=== PATIENT | female | born 1945 | race Caucasian/White ===

== ENCOUNTER → 2019-12-07 13:25 | Outpatient (CLI) | payer MEDICARE, SELFPAY ==
--- NOTE | ~2019-12-07 | MM_ITS ---
EXAMINATION: MM screening [facility] BI w grayson HISTORY: Screening mammogram TECHNIQUE: Craniocaudal and mediolateral oblique 3-D tomosynthesis images were obtained and synthetic 2-D images were generated. CAD analysis was submitted and interpreted. COMPARISON: 11/21/2018, 11/08/2017, 11/06/2016 bilateral digital screening mammogram examinations BREAST PARENCHYMAL COMPOSITION: FINDINGS: There is no evidence of suspicious mass, calcification, or architectural distortion to sugg est malignancy in either breast. There has been no suspicious interval change. IMPRESSION: 1. No mammographic evidence of malignancy. 2. Recommend routine screening mammography in one year. BI-RADS Category 1: Negative Reviewed, dictated and finalized at location A.
== END ==
PROVIDERS: PCP Family Medicine; Visit Provider Nurse Practitioner Obstetrics & Gynecology
DX: Z12.31 Encounter for screening mammogram for malignant neoplasm of breast (principal)
CPT/HCPCS: 77063; 77067

== ENCOUNTER 2020-02-19 07:30 | Outpatient (CLI) | payer MEDICARE, SELFPAY ==
[2020-02-19 08:43] LABS: Alanine Aminotransferase 48 U/L (4-35); Aspartate Amino Transferase 50 U/L (14-36)
== END 2020-02-19 07:31 | disposition home or self-care (01) ==
PROVIDERS: PCP Family Medicine; Visit Provider Physician Assistant
DX: E78.2 Mixed hyperlipidemia (principal)
CPT/HCPCS: 36415; 84450; 84460

== ENCOUNTER 2020-05-26 08:29 | Outpatient (CLI) | payer MEDICARE, SELFPAY ==
[2020-05-26 09:09] LABS: Alanine Aminotransferase 42 U/L (4-35); Aspartate Amino Transferase 44 U/L (14-36)
== END 2020-05-26 08:30 | disposition home or self-care (01) ==
PROVIDERS: PCP Family Medicine; Visit Provider Physician Assistant
DX: R74.8 Abnormal levels of other serum enzymes (principal)
CPT/HCPCS: 36415; 84450; 84460

== ENCOUNTER 2020-11-11 12:23 | Emergency (ER) | payer MEDICARE, SELFPAY ==
--- NOTE | ~2020-11-11 | CT_ITS ---
EXAMINATION: CT brain wo con DATE: 11/11/2020 14:04 INDICATION: Headache with pain at the base of the skull. TECHNIQUE: Computed tomography (CT) of the head was performed without intravenous contrast. Sagittal and coronal reconstructions were performed. The mA was adjusted according to patient size. Iterative reconstruction technique was employed. The dose-length product was 605.33 mGy-cm. COMPARISON: head CT dated 01/27/2018 FINDINGS: No acute intracranial hemorrhage, acute infarction or abnormal extra axial fluid collection. There is mild scattered white matter hypoattenuation consistent with chronic small vessel ischemic disease. V entricles are normal and symmetric. No mass/mass effect. Intracranial calcified cerebral atherosclero sis is noted. The orbits, paranasal sinuses and mastoid air cells are normal. IMPRESSION: 1. No acute intracranial process. 2. Mild scattered white matter hypoattenuation consistent with chronic small vessel ischemic disease. Reviewed, dictated and finalized at location A. 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 No acute intracranial process. 2. Mild scattered white matter hypoattenuation consistent with chronic small ve ssel ischemic disease.
[2020-11-11 12:32] VITALS: BP 157/80; PULSE 74; RESP 18; TEMP 36.5; O2SAT 99
--- NOTE | 2020-11-11 13:45 | ED.NECK ---
HPI - Neck Pain/Injury General Chief Complaint: Neck Pain/Injury Stated Complaint: posterior head pain Time Seen by Provider: 11/11/20 13:12 Source: patient Mode of arrival: ambulatory Limitations: no limitations History of Present Illness HPI Narrative: This is a 75 year old female that presents to the ER for posterior headache since yesterday. Reports pain is worse with palpation in the area. Does report it has subsided some since onset. Reports history of migraines. She took Tylenol around 10 this morning with some improvement. Denies fever, stiff neck, vision changes, vomiting, numbness or weakness. Related Data Allergies Allergy/AdvReac Type Severity Reaction Status Date / Time codeine Allergy Unknown Migraine Verified 11/11/20 12:36 NSAIDS (Non-Steroidal AdvReac Unknown ULCER WITH Verified 11/11/20 12:36 Anti-Inflamma NSAIDS Review of Systems Review of Systems: Narrative: CONSTITUTIONAL: Denies fever EYES: Denies visual changes GASTROINTESTINAL: Denies vomiting MUSCULOSKELETAL: Reports joint pain, and myalgia. NEUROLOGIC: Reports headache. Denies numbness, or weakness. All systems reviewed & are unremarkable except as noted in HPI and below PMFSH Past Medical History Medical History (Updated 11/11/20 @ 15:35 by Nehal Hoffman PA-C) Arthritis Ayoub esophagus Benign essential HTN Benign hypertension without CHF Chronic migraine GERD (gastroesophageal reflux disease) Hyperlipidemia Mixed hyperlipidemia OAB (overactive bladder) TAMMI (obstructive sleep apnea) Family History Family History Mother Family history of dementia, Onset Age: 88 Other Family history of alcoholism Family history of mental disorder Hypertension Social History Social History (Updated 10/06/20 @ 07:35 by Divina Booth) Social History: Smoking packs per day: 1 Smoking cigarettes per day: 20.0 Years smoked: 18 Smoking pack-years: 18.00 Smoking status: Former smoker Tobacco type: cigarettes Second hand tobacco smoke exposure: No Smoking end date: 09/16/95 Alcohol intake: former Substance use: never Substance use type: does not use Gender identity (if verbalized by the patient): Female Exam Narrative: Exam Narrative: GENERAL: Elderly, well-nourished, and in no acute distress. HEAD: Normocephalic, atraumatic. EYES: PERRLA and EOMI. ENT: Nares clear, no rhinorrhea or epistaxis. Mucous membranes moist. Oropharynx without tonsillar hypertrophy exudate or other lesions. Bilateral TMs pearly suresh non-bulging NECK: Supple. No adenopathy or masses. CHEST: Clear to auscultation. No respiratory distress. No wheezes rales or rhonchi HEART: Regular rate and rhythm. No murmur heard. Normal peripheral pulses. EXTREMITIES: Normal range of motion. No edema. Strength equal in bilateral upper extremities (5/5) SKIN: Warm, dry, no rash. NEURO: No focal deficits. Alert and oriented x3. Cranial nerves II through XII grossly intact. Normal [id number] PSYCH: Normal mood and affect Course Vital Signs Vital signs: Vital Signs Temperature 97.7 F 11/11/20 12:32 Pulse Rate 74 11/11/20 12:32 Respiratory Rate 18 11/11/20 12:32 Blood Pressure 157/80 H 11/11/20 12:32 Pulse Oximetry 99 11/11/20 12:32 Temperature 97.7 F 11/11/20 12:32 Pulse Rate 78 11/11/20 15:28 Respiratory Rate 20 11/11/20 15:28 Blood Pressure 148/72 H 11/11/20 15:28 Pulse Oximetry 99 11/11/20 15:28 MDM - Neck Pain/Injury MDM Narrative Medical decision making narrative: Patient presents the emergency department with no headache presents yesterday. She does report history of migraines for which she takes topiramate. She is afebrile and nontoxic-appearing. She is neurologically intact. CT scan of the brain is without acute findings. She was given migraine cocktail with relief. She is stable for further outpatient evaluation. She
[2020-11-11] MEDS: METOCLOPRAMIDE HCL INJ 10 MG/2 ML VIAL IV PUSH (14:05)
[2020-11-11] MEDS: SODIUM CHLORIDE 0.9% IV 1,000 ML 999 ML IV CONT (14:05)
[2020-11-11] MEDS: diphenhydrAMINE HCl INJ 50 MG/ML VIAL 25 MG IV PUSH (14:05)
[2020-11-11 15:28] VITALS: BP 148/72; PULSE 78; RESP 20; O2SAT 99
[2020-11-11 15:41] VITALS: BP 142/78; PULSE 78; RESP 18; O2SAT 99
== END 2020-11-11 15:43 | disposition home or self-care (01) ==
PROVIDERS: Emergency Provider Emergency Medicine; PCP Family Medicine
DX: R51.9 Headache, unspecified (principal); I10 Essential (primary) hypertension; K21.9 Gastro-esophageal reflux disease without esophagitis; E78.2 Mixed hyperlipidemia; G47.33 Obstructive sleep apnea (adult) (pediatric); K22.70 Barrett's esophagus without dysplasia; N32.81 Overactive bladder; M19.90 Unspecified osteoarthritis, unspecified site; Z87.891 Personal history of nicotine dependence
CPT/HCPCS: 70450; 96361; 96365; 96375; 99284; J0131; J1200; J2765; J7030

== ENCOUNTER → 2021-01-05 13:00 | Outpatient (CLI) | payer MEDICARE, SELFPAY ==
--- NOTE | ~2021-01-05 | MM_ITS ---
EXAMINATION: MM screening [facility] BI w grayson HISTORY: Screening mammogram TECHNIQUE: Craniocaudal and mediolateral oblique 3-D tomosynthesis images were obtained and synthetic 2-D images were generated. CAD analysis was submitted and interpreted. COMPARISON: 12/07/2019, 11/21/2018, 11/08/2017 BREAST PARENCHYMAL COMPOSITION: There are scattered areas of fibroglandular density. FINDINGS: There is no evidence of suspicious mass, calcification, or architectural distortion to sugg est malignancy in either breast. There has been no suspicious interval change. IMPRESSION: 1. No mammographic evidence of malignancy. 2. Recommend routine screening mammography in one year. BI-RADS Category 1: Negative Reviewed, dictated and finalized at location A.
== END ==
PROVIDERS: PCP Family Medicine; Visit Provider Family Medicine
DX: Z12.31 Encounter for screening mammogram for malignant neoplasm of breast (principal)
CPT/HCPCS: 77063; 77067

== ENCOUNTER 2021-01-24 07:43 | Emergency (ER) | payer MEDICARE, SELFPAY ==
[2021-01-24 07:48] VITALS: BP 133/76; PULSE 69; RESP 15; TEMP 36.2; O2SAT 96
[2021-01-24 08:07] VITALS: BP 127/64; PULSE 59; RESP 18; O2SAT 97
[2021-01-24 08:42] LABS: Basophils Absolute Auto 0.1 K/mm3 (0.0-0.1); Basophils Percent Auto 0.5 % (0.2-1.2); Eosinophils Absolute Auto 0.1 K/mm3 (0-0.3); Eosinophils Percent Auto 0.5 % (0-4.4); Hematocrit 39.6 % (37.0-47.0); Hemoglobin 13.5 g/dL (12.0-15.0); Immature Granulocyte Absolute 0.05 K/mm3 (0.00-0.031); Immature Granulocyte Percent A 0.5 % (0-0.5); Lymphocytes Absolute Auto 0.96 K/mm3 (0.9-3.2); Mean Corpuscular HGB Conc 34.1 g/dl (32-36); Mean Corpuscular Hemoglobin 29.6 pg (26-34); Mean Corpuscular Volume 86.8 fl (80-100); Mean Platelet Volume 9.8 fl (7.4-10.4); Monocytes Absolute Auto 0.7 K/mm3 (0.1-0.6); Monocytes Percent Auto 6.9 % (2.6-8.5); Neutrophils Absolute Auto 7.9 K/mm3 (1.3-6.7); Neutrophils Percent Auto 81.6 % (45.5-73.1); Platelet Count Result 285 k/mm3 (150-375); Red Blood Count 4.56 M/mm3 (4.2-5.4); Red Cell Distribution Width 13.2 % (11.5-14.5); White Blood Count 9.6 K/mm3 (4.5-10.0)
[2021-01-24 08:50] LABS: Alanine Aminotransferase 44 U/L (4-35); Albumin Level 4.7 g/dL (3.5-5.1); Alkaline Phosphatase 76 U/L (38-126); Anion Gap 8 mmol/L (8-16); Aspartate Amino Transferase 47 U/L (14-36); Bilirubin,Total 0.4 mg/dL (0.2-1.3); Blood Urea Nitrogen 8 mg/dL (7-17); Calcium 9.7 mg/dL (8.4-10.2); Carbon Dioxide 25 mmol/L (22-30); Chloride 101 mmol/L (98-107); Estimated CRCL calculation 57 ml/min; Estimated Glomerular Filt Rate > 60; Glucose 110 mg/dL (65-105); Lipase 107 U/L (23-300); Potassium 3.7 mmol/L (3.4-5.0); Sodium 134 mmol/L (137-145)
[2021-01-24] MEDS: SODIUM CHLORIDE 0.9% IV 1,000 ML 999 ML IV CONT (08:55)
[2021-01-24 09:15] VITALS: BP 125/61; PULSE 58; RESP 18; O2SAT 98
--- NOTE | 2021-01-24 09:16 | PC.NURSE ---
Pt receiving fluid bolus, denies N/V/abd pain, states last diarrhea episode last night
--- NOTE | 2021-01-24 09:17 | ED.GENADULT ---
HPI - General Adult General Chief complaint: Nausea/Vomiting/Diarrhea Stated complaint: diarrhea Time Seen by Provider: 01/24/21 07:48 History of Present Illness HPI narrative: Patient is a 75-year-old female who presents ER with diarrhea. Symptoms began 2 days ago. She reports that they were occurring quite frequently but cannot put a number on it. They were large-volume. They are not associated with any antibiotics or sick contacts. She reports she has been titrating up on new medication, it is a combo drug of memantine and donepezil. After titrating up to a third strength she began having the symptoms. She then discontinued the medication. She reports her diarrhea has decreased over the last day and she did not have any loose stools today. No fevers or chills or sweats. No loss of consciousness. Denies blood in her stool. Denies history of bowel obstruction or abdominal surgery. Related Data Allergies Allergy/AdvReac Type Severity Reaction Status Date / Time codeine Allergy Unknown Migraine Verified 01/03/21 07:29 NSAIDS (Non-Steroidal AdvReac Unknown ULCER WITH Verified 01/03/21 07:29 Anti-Inflamma NSAIDS Review of Systems Review of Systems: All systems reviewed & are unremarkable except as noted in HPI and below Constitutional: Constitutional: Denies chills, Denies fever(s) and Denies weakness Respiratory: Respiratory: Denies cough and Denies dyspnea Gastrointestinal: Gastrointestinal: Denies abdominal pain, Reports diarrhea, Denies nausea and Denies vomiting Genitourinary: Genitourinary: Denies nocturia and Denies dysuria [facility] Past Medical History Medical History (Updated 01/24/21 @ 09:21 by Nahid Wagoner MD) Arthritis Ayoub esophagus Benign essential HTN Benign hypertension without CHF Chronic migraine Dementia GERD (gastroesophageal reflux disease) Hyperlipidemia Mixed hyperlipidemia OAB (overactive bladder) TAMMI (obstructive sleep apnea) Family History Family History Mother Family history of dementia, Onset Age: 88 Other Family history of alcoholism Family history of mental disorder Hypertension Social History Social History (Updated 01/03/21 @ 07:35 by Divina Booth) Social History: Smoking packs per day: 1 Smoking cigarettes per day: 20.0 Years smoked: 18 Smoking pack-years: 18.00 Smoking status: Former smoker Tobacco type: cigarettes Second hand tobacco smoke exposure: No Smoking end date: 09/16/95 Alcohol intake: former Substance use: never Substance use type: does not use Gender identity (if verbalized by the patient): Female Exam Narrative: Exam Narrative: GENERAL: Well-appearing, well-nourished, and in no acute distress. HEAD: Normocephalic, atraumatic. ENT: Mucous membranes moist. CHEST: Clear to auscultation. No respiratory distress. HEART: Regular rate and rhythm. Normal peripheral pulses. ABDOMEN: Soft, nontender, nondistended, normal active bowel sounds. EXTREMITIES: Normal range of motion. No edema. NEURO: Alert and oriented x3. PSYCH: Normal mood and affect. Course Course Emergency Course: Unremarkable exam and lab work. Patient reports decreased loose stools. Discussed that symptoms may certainly be related to her medication. Recommend she contact her PCP in follow-up for further evaluation. Transaminitis within normal range for patient. Vital Signs Vital signs: Vital Signs Temperature 97.1 F L 01/24/21 07:48 Pulse Rate 69 01/24/21 07:48 Respiratory Rate 15 01/24/21 07:48 Blood Pressure 133/76 01/24/21 07:48 Pulse Oximetry 96 01/24/21 07:48 Temperature 97.1 F L 01/24/21 07:48 Pulse Rate 58 L 01/24/21 09:15 Respiratory Rate 18 01/24/21 09:15 Blood Pressure 125/61 01/24/21 09:15 Pulse Oximetry 98 01/24/21 09:15 Medical Decision Making Vital Signs Vital Signs: Vital Signs Temperature 97.1 F L 05
[2021-01-24 09:46] VITALS: BP 134/64; PULSE 60; RESP 16; O2SAT 99
== END 2021-01-24 09:47 | disposition home or self-care (01) ==
PROVIDERS: Emergency Provider Emergency Medicine; PCP Family Medicine
DX: K52.9 Noninfective gastroenteritis and colitis, unspecified (principal); M19.90 Unspecified osteoarthritis, unspecified site; I10 Essential (primary) hypertension; F03.90 Unspecified dementia, unspecified severity, without behavioral disturbance, psychotic disturbance, mood disturbance, and anxiety; K21.9 Gastro-esophageal reflux disease without esophagitis; E78.5 Hyperlipidemia, unspecified; G47.30 Sleep apnea, unspecified
CPT/HCPCS: 36415; 80053; 83690; 85025; 99283; J7030

== ENCOUNTER → 2021-03-13 10:17 | Outpatient (CLI) | payer MEDICARE, SELFPAY ==
--- NOTE | ~2021-03-13 | DEXA_ITS ---
Bone Density Report Name: Windy Escamilla Age: 75 Sex: Female Ethnicity: White Date of : 1945 Indication: postmenopausal; screening for osteoporosis; height loss; Referring Provider: SABRINA MCGREGOR Study: Bone densitometry was performed. Exam Date: March 13, 2021 Accession number: [id number] Bone Density: Region BMD T-score Z-score Classification AP Spine (L1-L4) 0.928 -1.1 1.3 Osteopenia Femoral Neck (Left) 0.823 -0.2 1.9 Normal Total Hip (Left) 0.983 0.3 2.1 Normal Femoral Neck (Right) 0.770 -0.7 1.4 Normal Total Hip (Right) 0.909 -0.3 1.5 Normal Total Hip Mean 0.946 0.0 1.8 Normal World Health Organization criteria for BMD impression classify patients as: Normal (T-score at or above -1.0), Osteopenia (T-score between -1.0 and -2.5), or Osteoporosis (T-score at or below -2.5). 10-year Fracture Risk(1): Major Osteoporotic Fracture 8.8% Hip Fracture 1.1% Reported Risk Factors: [place] (), Neck BMD=0.770, BMI=31.0 (1) FRAX(R) Version 3.08. Fracture probability calculated for an untreated patient. Fracture probability may be lower if the patient has received treatment. Previous Exams: Region Exam Age BMD T-score BMD Change BMD Change Date g/cm2 vs Baseline vs Previous AP Spine(L1-L4) 03/13/2021 75 0.928 -1.1 -0.007 -0.020 03/10/2019 73 0.948 -0.9 0.013 0.013 03/08/2017 71 0.935 -1.0 Total Hip(Left) 03/13/2021 75 0.983 0.3 0.058* 0.026 03/10/2019 73 0.956 0.1 0.031* 0.031* 03/08/2017 71 0.925 -0.1 Total Hip(Right) 03/13/2021 75 0.909 -0.3 0.054* 0.019 03/10/2019 73 0.890 -0.4 0.035* 0.035* 03/08/2017 71 0.855 -0.7 *Denotes significance at 95% confidence level, LSC for AP Spine = 0.022 g/cm2, LSC for Total Hip = 0.027 g/cm2 Clinical Information Provided by Patient: Has used the following medications: Vitamin D, Calcium, MTV Patient maximum height was 70.0 Menopause Age: 58 Drinks caffeinated beverages Onset of menses at age 12 Number of children 2 Impression: The patient has low bone mass, based on the Total Spine T-score. The patient has an estimated ten-year risk of hip fracture of 1.1% and an estimated ten-year risk of major fracture of 8.8%, based on the WHO FRAX algorithm. No significant bone loss was observed. Discussion: BONE DENSITY IS LOW AT
== END ==
PROVIDERS: Visit Provider Family Medicine
DX: Z78.0 Asymptomatic menopausal state (principal); M85.88 Other specified disorders of bone density and structure, other site
CPT/HCPCS: 77080

== ENCOUNTER 2021-07-10 09:45 | Outpatient (CLI) | payer MEDICARE, SELFPAY ==
--- NOTE | ~2021-07-10 | US_ITS ---
EXAMINATION: US carotid duplex BI EXAM DATE: 07/10/2021 10:17 INDICATION: Chest pain. R09.89 - Other specified symptoms and signs involving the... TECHNIQUE: Grayscale, color and pulsed Doppler images of the cervical carotid arteries were obtained . The degree of vessel stenosis is placed in one of the following categories: normal, <50% stenosis, 50-69% stenosis, >=70% stenosis but less than near-occlusion, near-occlusion, or occlusion. Note that percent stenosis relative to normal distal artery lumen diameter is indirectly measured from velocit y measurements as described by Barney, et al. Radiology 2003; 229:340-346. There is no prior study fo r comparison. FINDINGS: RIGHT SIDE: Right common carotid artery peak systolic velocity (PSV in cm/s): 74 Right bulb/internal carotid artery peak systolic velocity (PSV in cm/s): 131 Right internal carotid artery end diastolic velocity (EDV in cm/s): 41 Right ICA/CCA peak systolic ratio: 1.8 Right external carotid artery peak systolic velocity (PSV in cm/s): 133 Right vertebral artery antegrade flow: yes There is no focal plaque identified. LEFT SIDE: Left common carotid artery peak systolic velocity (PSV in cm/s): 78 Left bulb/internal carotid artery peak systolic velocity (PSV in cm/s): 98 Left internal carotid artery end diastolic velocity (EDV in cm/s): 33 Left ICA/CCA peak systolic ratio: 1.3 Left external carotid artery peak systolic velocity (PSV in cm/s): 86 Left vertebral artery antegrade flow: yes There is minimal carotid bulb plaque. Velocity and Doppler waveforms in the common and internal carotid arteries is normal. IMPRESSION: 1. Normal right internal carotid artery. 2. Less than 50 percent stenosis in the left internal carotid artery. Reviewed, dictated and finalized at location B.
== END 2021-07-10 09:46 | disposition home or self-care (01) ==
PROVIDERS: PCP Family Medicine; Visit Provider Family Medicine
DX: R09.89 Other specified symptoms and signs involving the circulatory and respiratory systems (principal); I65.22 Occlusion and stenosis of left carotid artery
CPT/HCPCS: 93880

== ENCOUNTER → 2022-02-26 12:10 | Outpatient (CLI) | payer MEDICARE, SELFPAY ==
--- NOTE | ~2022-02-26 | MM_ITS ---
EXAMINATION: MM screening jaqui BI w grayson HISTORY: Screening TECHNIQUE: Craniocaudal and mediolateral oblique 3-D tomosynthesis images were obtained and synthetic 2-D images were generated. CAD analysis was submitted and interpreted. COMPARISON: Comparison to multiple prior studies sequentially, with oldest reviewed study dated 06/13. BREAST PARENCHYMAL COMPOSITION: Breast composed of scattered areas of fibroglandular density FINDINGS: There is no evidence of suspicious mass, calcification, or architectural distortion to sugg est malignancy in either breast. There has been no suspicious interval change. IMPRESSION: 1. No mammographic evidence of malignancy. 2. Recommend routine screening mammography in one year. BI-RADS Category 1: Negative Reviewed, dictated and finalized at location A.
== END ==
PROVIDERS: PCP Family Medicine; Visit Provider Family Medicine
DX: Z12.31 Encounter for screening mammogram for malignant neoplasm of breast (principal)
CPT/HCPCS: 77063; 77067

== ENCOUNTER 2022-10-31 00:41 | Day surgery (SDC) | payer MEDICARE, SELFPAY ==
[2022-10-18 11:13] VITALS: BMI 31.6
--- NOTE | 2022-10-30 16:54 | PM.HPGS ---
History of Present Illness History of Present Illness Consent: Risks, benefits, and alternatives have been discussed and questions answered. Patient agrees to proceed with procedure. Chief complaint: GERD Narrative: Windy Escamilla is a 77 year old female Referred for investigation of chronic reflux symptoms. Review of Systems Review of Systems: All systems reviewed & are unremarkable except as noted in HPI and below PMFSH Past Medical History Medical History Abnormal screening mammogram Adverse reaction to drug Arthritis Ayoub esophagus Benign essential HTN Benign hypertension without CHF Breast cancer screening Bruit Chronic migraine Colitis Contusion of left lower leg, subsequent encounter Contusion of right great toe without damage to nail, subsequent encounter Dementia Diarrhea Eustachian tube disorder GERD (gastroesophageal reflux disease) Hyperlipidemia Memory change Mixed hyperlipidemia OAB (overactive bladder) TAMMI (obstructive sleep apnea) Palpitations Palpitations Postmenopausal Family History Family History Mother Family history of dementia, Onset Age: 88 Other Family history of alcoholism Family history of mental disorder Hypertension Social History Social History Social History: Smoking packs per day: 1 Smoking cigarettes per day: 20.0 Years smoked: 18 Smoking pack-years: 18.00 Smoking status: Former smoker Tobacco type: cigarettes Second hand tobacco smoke exposure: No Smoking end date: 09/16/95 Alcohol intake: former Substance use: never Substance use type: does not use Living arrangements: with family Occupation/Education: retired Gender identity (if verbalized by the patient): Female Sexual Orientation (if Verbalized by the Patient): Straight or Heterosexual Spiritual care concerns: No Meds Home Medications and Allergies Home Medications Medication Instructions Recorded Confirmed Type clobetasol 0.05 % scalp solution 1 applic topical DAILY #50 mL 05/30/20 10/18/22 Rx fluticasone propionate 50 2 spray .Route BID #48 mL 05/17/22 10/18/22 Rx mcg/actuation nasal spray,suspension rosuvastatin 20 mg tablet See Rx Instructions .Route 05/23/22 10/18/22 Rx .COMPLEX #90 tabs memantine 5 mg tablet See Rx Instructions .Route 05/30/22 10/18/22 Rx .COMPLEX #180 tabs azelastine 137 mcg (0.1 %) nasal 137 mcg (0.137 mL) intranasal Q12H 06/27/22 10/18/22 Rx spray aerosol #30 mL omeprazole 40 mg capsule,delayed See Rx Instructions .Route 07/09/22 10/18/22 Rx release .COMPLEX #90 caps ipratropium bromide 21 mcg (0.03 2 spray intranasal BID #30 mL 09/20/22 10/18/22 Rx %) nasal spray chlorthalidone 25 mg tablet See Rx Instructions .Route 10/12/22 10/18/22 Rx .COMPLEX #45 tabs topiramate 25 mg tablet See Rx Instructions .Route 10/12/22 10/18/22 Rx .COMPLEX #90 tabs metoprolol succinate 25 mg See Rx Instructions .Route 10/26/22 10/31/22 Rx tablet,extended release 24 hr .COMPLEX #90 tabs potassium chloride 10 mEq See Rx Instructions .Route 10/26/22 10/31/22 Rx tablet,extended release .COMPLEX #90 tabs ezetimibe 10 mg tablet See Rx Instructions .Route 10/31/22 10/31/22 Rx .COMPLEX #90 tabs Allergies Allergy/AdvReac Type Severity Reaction Status Date / Time codeine Allergy Intermediate Migraine Verified 10/31/22 09:09 donepezil [From Namzaric] AdvReac Intermediate diarrhea Verified 10/31/22 09:09 NSAIDS (Non-Steroidal AdvReac Unknown ULCER WITH Verified 10/31/22 09:09 Anti-Inflamma NSAIDS Exam Const: General: alert Orientation/consciousness: patient oriented x3 Resp: Auscultation: clear to auscultation bilaterally Cardio: Rhythm: regular rhythm GI: GI Palp: Yes Soft to palpation and No Tenderness to palpation p
[2022-10-31 09:10] VITALS: BP 147/63; PULSE 53; RESP 17; TEMP 36.1; O2SAT 98; BMI 31.8
[2022-10-31] MEDS: LACTATED RINGERS 1,000 ML 150 ML IV CONT (09:22)
--- NOTE | 2022-10-31 09:35 | WPDANESEPPF ---
Anes - Initial Pre Proc Eval Procedure: Operation Date: 10/31/22 10:30 Proposed Procedures p Esophagogastroduodenoscopy - Mejia Bourgeois MD Date/Time: 10/31/22 09:35 Surgeon: Mejia Bourgeois MD Pre Op Diagnosis: GERD Patient Data Age: 77 Gender: F Height: 1.75 m Weight: 97.9 kg Last Vital Signs Temp 96.9 F L 10/31/22 09:10 Pulse 53 L 10/31/22 09:10 Resp 17 10/31/22 09:10 BP 147/63 H 10/31/22 09:10 Pulse Ox 98 10/31/22 09:10 O2 Del Method Room Air 10/31/22 09:10 Allergies Allergy/AdvReac Type Severity Reaction Status Date / Time codeine Allergy Intermediate Migraine Verified 10/31/22 09:09 donepezil [From Namzaric] AdvReac Intermediate diarrhea Verified 10/31/22 09:09 NSAIDS (Non-Steroidal AdvReac Unknown ULCER WITH Verified 10/31/22 09:09 Anti-Inflamma NSAIDS Home Medications Medication Instructions Recorded Confirmed Type clobetasol 0.05 % scalp solution 1 applic topical DAILY #50 mL 05/30/20 10/18/22 Rx fluticasone propionate 50 2 spray .Route BID #48 mL 05/17/22 10/18/22 Rx mcg/actuation nasal spray,suspension rosuvastatin 20 mg tablet See Rx Instructions .Route 05/23/22 10/18/22 Rx .COMPLEX #90 tabs memantine 5 mg tablet See Rx Instructions .Route 05/30/22 10/18/22 Rx .COMPLEX #180 tabs azelastine 137 mcg (0.1 %) nasal 137 mcg (0.137 mL) intranasal Q12H 06/27/22 10/18/22 Rx spray aerosol #30 mL omeprazole 40 mg capsule,delayed See Rx Instructions .Route 07/09/22 10/18/22 Rx release .COMPLEX #90 caps ipratropium bromide 21 mcg (0.03 2 spray intranasal BID #30 mL 09/20/22 10/18/22 Rx %) nasal spray chlorthalidone 25 mg tablet See Rx Instructions .Route 10/12/22 10/18/22 Rx .COMPLEX #45 tabs topiramate 25 mg tablet See Rx Instructions .Route 10/12/22 10/18/22 Rx .COMPLEX #90 tabs metoprolol succinate 25 mg See Rx Instructions .Route 10/26/22 10/31/22 Rx tablet,extended release 24 hr .COMPLEX #90 tabs potassium chloride 10 mEq See Rx Instructions .Route 10/26/22 10/31/22 Rx tablet,extended release .COMPLEX #90 tabs ezetimibe 10 mg tablet See Rx Instructions .Route 10/31/22 10/31/22 Rx .COMPLEX #90 tabs Patient hx anesthesia problems: none Family hx anesthesia problems: none Results Review: All pre-operative results and documents have been reviewed as part of the pre-operative evaluation. [facility] Past Medical History Medical History Abnormal screening mammogram Adverse reaction to drug Arthritis Ayoub esophagus Benign essential HTN Benign hypertension without CHF Breast cancer screening Bruit Chronic migraine Colitis Contusion of left lower leg, subsequent encounter Contusion of right great toe without damage to nail, subsequent encounter Dementia Diarrhea Eustachian tube disorder GERD (gastroesophageal reflux disease) Hyperlipidemia Memory change Mixed hyperlipidemia OAB (overactive bladder) TAMMI (obstructive sleep apnea) Palpitations Palpitations Postmenopausal Family History Family History Mother Family history of dementia, Onset Age: 88 Other Family history of alcoholism Family history of mental disorder Hypertension Social History Social History Social History: Smoking packs per day: 1 Smoking cigarettes per day: 20.0 Years smoked: 18 Smoking pack-years: 18.00 Smoking status: Former smoker Tobacco type: cigarettes Second hand tobacco smoke exposure: No Smoking end date: 09/16/95 Alcohol intake: former Substance use: never Substance use type: does not use Living arrangements: with family Occupation/Education: retired Gender identity (if verbalized by the patient): Female Sexual Orientation (if Verbalized by the Patient): Straight or Heterosexual Spiritual care concerns: No
--- NOTE | 2022-10-31 10:38 | PM.HPGS ---
History of Present Illness History of Present Illness Consent: Risks, benefits, and alternatives have been discussed and questions answered. Patient agrees to proceed with procedure. Chief complaint: GERD Narrative: Windy Escamilla is a 77 year old female Chronic acid reflux symptoms. She has been having dyspepsia recently and having some difficulty swallowing solid food. Review of Systems Review of Systems: All systems reviewed & are unremarkable except as noted in HPI and below PMFSH Past Medical History Medical History Abnormal screening mammogram Adverse reaction to drug Arthritis Ayoub esophagus Benign essential HTN Benign hypertension without CHF Breast cancer screening Bruit Chronic migraine Colitis Contusion of left lower leg, subsequent encounter Contusion of right great toe without damage to nail, subsequent encounter Dementia Diarrhea Eustachian tube disorder GERD (gastroesophageal reflux disease) Hyperlipidemia Memory change Mixed hyperlipidemia OAB (overactive bladder) TAMMI (obstructive sleep apnea) Palpitations Palpitations Postmenopausal Family History Family History Mother Family history of dementia, Onset Age: 88 Other Family history of alcoholism Family history of mental disorder Hypertension Social History Social History Social History: Smoking packs per day: 1 Smoking cigarettes per day: 20.0 Years smoked: 18 Smoking pack-years: 18.00 Smoking status: Former smoker Tobacco type: cigarettes Second hand tobacco smoke exposure: No Smoking end date: 09/16/95 Alcohol intake: former Substance use: never Substance use type: does not use Living arrangements: with family Occupation/Education: retired Gender identity (if verbalized by the patient): Female Sexual Orientation (if Verbalized by the Patient): Straight or Heterosexual Spiritual care concerns: No Meds Home Medications and Allergies Home Medications Medication Instructions Recorded Confirmed Type clobetasol 0.05 % scalp solution 1 applic topical DAILY #50 mL 05/30/20 10/18/22 Rx fluticasone propionate 50 2 spray .Route BID #48 mL 05/17/22 10/18/22 Rx mcg/actuation nasal spray,suspension rosuvastatin 20 mg tablet See Rx Instructions .Route 05/23/22 10/18/22 Rx .COMPLEX #90 tabs memantine 5 mg tablet See Rx Instructions .Route 05/30/22 10/18/22 Rx .COMPLEX #180 tabs azelastine 137 mcg (0.1 %) nasal 137 mcg (0.137 mL) intranasal Q12H 06/27/22 10/18/22 Rx spray aerosol #30 mL omeprazole 40 mg capsule,delayed See Rx Instructions .Route 07/09/22 10/18/22 Rx release .COMPLEX #90 caps ipratropium bromide 21 mcg (0.03 2 spray intranasal BID #30 mL 09/20/22 10/18/22 Rx %) nasal spray chlorthalidone 25 mg tablet See Rx Instructions .Route 10/12/22 10/18/22 Rx .COMPLEX #45 tabs topiramate 25 mg tablet See Rx Instructions .Route 10/12/22 10/18/22 Rx .COMPLEX #90 tabs metoprolol succinate 25 mg See Rx Instructions .Route 10/26/22 10/31/22 Rx tablet,extended release 24 hr .COMPLEX #90 tabs potassium chloride 10 mEq See Rx Instructions .Route 10/26/22 10/31/22 Rx tablet,extended release .COMPLEX #90 tabs ezetimibe 10 mg tablet See Rx Instructions .Route 10/31/22 10/31/22 Rx .COMPLEX #90 tabs Allergies Allergy/AdvReac Type Severity Reaction Status Date / Time codeine Allergy Intermediate Migraine Verified 10/31/22 09:09 donepezil [From Namzaric] AdvReac Intermediate diarrhea Verified 10/31/22 09:09 NSAIDS (Non-Steroidal AdvReac Unknown ULCER WITH Verified 10/31/22 09:09 Anti-Inflamma NSAIDS Vital Signs Vital Signs - 24 hr 10/31/22 09:10 Temperature 36.1 C L Pulse Rate 53 L Respiratory Rate 17 Blood Pressure 147/63 H Pulse Oximetry 98 Oxygen Delivery Room Air
[2022-10-31 10:54] VITALS: BP 130/69; PULSE 50; RESP 25; O2SAT 99
[2022-10-31 11:04] VITALS: BP 146/73; PULSE 60; RESP 20; O2SAT 99
[2022-10-31 11:16] VITALS: BP 149/72; PULSE 56; RESP 21; O2SAT 98
== END 2022-10-31 11:23 | disposition home or self-care (01) ==
PROVIDERS: PCP Family Medicine; Visit Provider Internal Medicine Gastroenterology
PROC: 0DJ08ZZ Inspection of Upper Intestinal Tract, Via Natural or Artificial Opening Endoscopic (ICD-10-PCS; CPT 43235; principal; 2022-10-31 10:30)
DX: K22.2 Esophageal obstruction (principal); K21.9 Gastro-esophageal reflux disease without esophagitis; I10 Essential (primary) hypertension; F03.90 Unspecified dementia, unspecified severity, without behavioral disturbance, psychotic disturbance, mood disturbance, and anxiety; G47.33 Obstructive sleep apnea (adult) (pediatric); E78.5 Hyperlipidemia, unspecified; Z87.891 Personal history of nicotine dependence; E66.9 Obesity, unspecified; Z68.31 Body mass index [BMI] 31.0-31.9, adult
CPT/HCPCS: 43249; 88305; C1726; J2704; J7120

== ENCOUNTER → 2023-06-04 10:43 | Outpatient (CLI) | payer MEDICARE, SELFPAY ==
--- NOTE | ~2023-06-04 | MM_ITS ---
EXAMINATION: MM screening jaqui BI w grayson HISTORY: Screening TECHNIQUE: Craniocaudal and mediolateral oblique 3-D tomosynthesis images were obtained and synthetic 2-D images were generated. CAD analysis was submitted and interpreted. COMPARISON: Comparison to multiple prior studies sequentially, with oldest reviewed study dated 11/06. BREAST PARENCHYMAL COMPOSITION: The breasts are almost entirely fatty. FINDINGS: There is no evidence of suspicious mass, calcification, or architectural distortion to sugg est malignancy in either breast. There has been no suspicious interval change. IMPRESSION: 1. No mammographic evidence of malignancy. 2. Recommend routine screening mammography in one year. BI-RADS Category 1: Negative Reviewed, dictated and finalized at location A.
--- NOTE | ~2023-06-04 | DEXA_ITS ---
Bone Density Report Name: BERNARDO PARKER Age: 77 Sex: Female Ethnicity: White Date of : 1945 Indication: osteopenia; height loss; postmenopausal Referring Provider: REENA, IKER Arechiga Study: Bone densitometry was performed. Exam Date: June 04, 2023 Accession number: [id number] Bone Density: Region BMD T-score Z-score Classification AP Spine (L1-L4) 0.950 -0.9 1.7 Normal Femoral Neck (Left) 0.742 -1.0 1.2 Normal Total Hip (Left) 0.947 0.0 2.0 Normal Femoral Neck (Right) 0.737 -1.0 1.2 Normal Total Hip (Right) 0.874 -0.6 1.4 Normal Total Hip Mean 0.911 -0.3 1.7 Normal World Health Organization criteria for BMD impression classify patients as: Normal (T-score at or above -1.0), Osteopenia (T-score between -1.0 and -2.5), or Osteoporosis (T-score at or below -2.5). 10-year Fracture Risk: FRAX not reported because: All T-scores for Spine Total, Hip Total, Femoral Neck at or above -1.0 Previous Exams: Region Exam Age BMD T-score BMD Change BMD Change Date g/cm2 vs Baseline vs Previous AP Spine(L1-L4) 06/04/2023 77 0.950 -0.9 0.015 0.022 03/13/2021 75 0.928 -1.1 -0.007 -0.020 03/10/2019 73 0.948 -0.9 0.013 0.013 03/08/2017 71 0.935 -1.0 Total Hip(Left) 06/04/2023 77 0.947 0.0 0.022 -0.036* 03/13/2021 75 0.983 0.3 0.058* 0.026 03/10/2019 73 0.956 0.1 0.031* 0.031* 03/08/2017 71 0.925 -0.1 Total Hip(Right) 06/04/2023 77 0.874 -0.6 0.019 -0.036* 03/13/2021 75 0.909 -0.3 0.054* 0.019 03/10/2019 73 0.890 -0.4 0.035* 0.035* 03/08/2017 71 0.855 -0.7 *Denotes significance at 95% confidence level, LSC for AP Spine = 0.022 g/cm2, LSC for Total Hip = 0.027 g/cm2 Clinical Information Provided by Patient: Has used the following medications: Vitamin D, Calcium, MTV Patient maximum height was 70.0 Menopause Age: 58 No regular weight bearing exercise Onset of menses at age 12 Number of children 2 Impression: The patient has normal bone mass. The BMD for the Total Hip(Left) decreased, changing by -0.036 since the last DXA exam. The BMD for the Total Hip(Right) decreased, changing by -0.036 since the last DXA exam. Discussion: BONE DENSITY IS ABOVE THE MINIMUM DESIRABLE LEVEL AT ALL SKELETAL SITES TESTED. This patient?s bone
== END ==
PROVIDERS: PCP Nurse Practitioner Gerontology; Visit Provider Nurse Practitioner Gerontology
DX: Z12.31 Encounter for screening mammogram for malignant neoplasm of breast (principal); Z78.0 Asymptomatic menopausal state
CPT/HCPCS: 77063; 77067; 77080

== ENCOUNTER 2025-03-16 08:11 | Outpatient (CLI) | payer MEDICARE, SELFPAY ==
--- OUTSIDE RECORDS SUMMARY | 2025-03-16 08:14 | XMS_ITS | Clinical Summary ---
Author Organization [facility] [place] [address] Address [address] [place] [address] Care Team Providers Care National Park Ranger Name Role Phone Jessica Russo MD Primary Care Provider Allergies Active Allergy Reactions Criticality Noted Date Comments Codeine Medications diclofenac (CATAFLAM) 50 mg tablet take 1 tablet by oral route 2 times every day 0 0 11/30/2015 Active topiramate (TOPAMAX) 25 mg capsule take 2 capsule by oral route 2 times every day in the morning and evening 0 0 11/30/2015 Active psyllium (METAMUCIL) 0.52 gram capsule 0 0 11/30/2015 Active calcium citrate-vitamin D3 (CALCITRATE-VIT MCDANIEL D) 315-250 mg-unit per tablet 0 0 11/30/2015 Active simvastatin (ZOCOR) 40 mg tablet take 1 tablet by oral route every day in the evening 0 0 11/30/2015 Active Medical History Medical History Date Comments Hx Other Medical migraine; Comme nts: DINA 11/30/2015 - Hx Other Medical stomach ulcers; Comments: [facility] 11/30/2015 - Hx Other Medical gastric reflux; Comments: [facility] 11/30/2015 - Hx Other Medical osteoarthritis; Comments: [facility] 11/30/2015 - Hx Other Medical Breast Implants and Removal; Comments: [facility]INA 11/30/2015 - Family History Medical History Relation Name Comments Alcohol abuse Other Family history of Alcoholism; Arthritis Other Family history of Arthritis; Dementia Other Family history of Dementia; Relation Name Status Comments Other Social History Tobacco Use Types Packs/Day Years Used Date Smoking Tobacco: Never Assessed Comments Unknown Sex and Gender Information Value Date Recorded Sex Assigned at Not on file Legal 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 Gender Identity Not on file Sexual Orientation Not on file Obstetrics History Last Filed Vital Signs Vital Sign Reading Time Taken Comments Blood Pressure 168/87 11/30/2015 1:54 PM CDT Pulse 74 11/30/2015 1:54 PM CDT Temperature - - Respiratory Rate - - Oxygen Saturation - - Inhaled Oxygen Concentration - - Weight 88.5 kg (195 lb) 11/30/2015 1:54 PM CDT Height 175.3 cm (5' 9) 11/30/2015 1:54 PM CDT Body Mass Index 28.8 11/30/2015 1:54 PM CDT Plan of Treatment Health Maintenance Due Date Last Done Comments Depression Screening 1945 Fall Risk Assessment 1945 Hepatitis C Screening 1945 Osteoporosis Screening-Bone Density Scan 1945 DTaP/Tdap/Td Vaccine (1 - Tdap) 1956 Hepatitis B Screening 1963 Well Visit 65+ 2010 Pneumococcal vaccine 65+ (2 of 2 - PPSV23) 05/24/2017 05/24/2016, 05/23/2016 Covid-19 Vaccine (3 - 2023-2 5 season) 2024 11/29/2020, 11/01/2020 Influenza Vaccine (Season Ended) 2025 05/15/2021, 05/20/2019, 05/29/2018, Additional history exists Zoster Vaccine Completed 08/06/2019, 04/01/2019 Insurance [employer] CHOICE MEDICARE PPO Care Teams National Park Ranger Relationship Specialty Start Date End Date Jessica Russo MD [address] [place], [place] [id number] PCP - General Family Medicine 05/15/18
--- OUTSIDE RECORDS SUMMARY | 2025-03-16 08:14 | XMS_ITS | Clinical Summary ---
Author Organization [facility] Address [address] [facility] [place] [address] Phone Care Team Providers Care Print Line Tailer Name Role Phone Kalen Saavedra DO Primary Care Provider Audie Pizarro DO Unavailable [phone] Allergies Active Allergy Reactions Criticality Noted Date Comments Codeine Other (see Comments) 12/30/2015 Migraines Medications simvastatin (ZOCOR) 40 MG Tablet Take 40 mg by mouth daily. Active topiramate (TOPAMAX) 25 MG Tablet Take 25 mg by mouth nightly. Active omeprazole (PRILOSEC) 40 MG CAPSULE DELAYED RELEASE Take 1 Cap by mouth daily. 90 Cap 3 02/09/2016 Active CINNAMON PO Take by mouth. Active Cholecalciferol (VITAMIN D3) 1000 UNIT Tablet Take by mouth. Active Turmeric 500 MG Capsule Take 500 mg by mouth daily. Active Bioflavonoid Products (BIOFLEX PO) Take by mouth. Active Multiple Vitamins-Mineral s (ONE-A-DAY WOMENS 50 PLUS PO) Take by mouth. Active Diphenhydramine- APAP, sleep, (TYLENOL PM EXTRA STRENGTH PO) Take by mouth. Active Active Problems Problem Noted Date Diagnosed Date TAMMI (obstructive sleep apnea) 11/14/2016 Multinodular goiter (nontoxic) 08/17/2016 Immunizations Immunization Administration Dates Next Due Influenza Vaccine greater than 3 yrs 05/24/2016 Pneumococcal Vaccine Peds - 7 Valent 05/24/2016 Family History Medical History Relation Name Comments Alcohol Abuse Father Alcohol Abuse Mother Dementia Mother Relation Name Status Comments Father Mother Social History Tobacco Use Types Packs/Day Years Used Date Smoking Tobacco: Former Cigarettes 1 30 Smokeless Tobacco: Never Tobacco Cessation:Counseling Given: No Alcohol Use Standard Drinks/Week Comments Yes 0 (1 standard drink = 0.6 oz pur e alcohol) very rare Comments No Sex and Gender Information Value Date Recorded Sex Assigned at Not on file Legal 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 Gender Identity Not on file Sexual Orientation Not on file 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 Not on file Not on file Not on file Last Filed Vital Signs Vital Sign Reading Time Taken Comments Blood Pressure 120/78 01/09/2018 8:04 AM CDT Pulse 67 01/09/2018 8:04 AM CDT Temperature 36.8 C (98.2 F) 12/31/2016 11:24 AM CDT Respiratory Rate 18 01/09/2018 8:04 AM CDT Oxygen Saturation 97% 01/09/2018 8:04 AM CDT Inhaled Oxygen Concentration - - Weight 97.1 kg (214 lb) 01/09/2018 8:04 AM CDT Height 175.3 cm (5' 9) 01/09/2018 8:04 AM CDT Body Mass Index 31.6 01/09/2018 8:04 AM CDT Plan of Treatment Health Maintenance Due Date Last Done Comments Hepatitis C Virus (HCV) Screening 1945 TdaP Immunization 1945 Zoster Immunization (1 of 2) 1995 Pneumococcal Immunization (5 0+ years) (2 of 2 - PPSV23) 05/23/2017 05/24/2016, 05/23/2016 Respiratory Syncytial Virus (RSV) Immunization (Adult) (1 - 1-dose 75+ series) 2020 SARS-COV-2 Immunization (3 - 2023- season) 2024 11/29/2020, 11/01/2020 Influenza Immunization (Seas on Ended) 2025 05/27/2017, 05/24/2016, 05/23/2016 Pneumococcal Immunization Combined Discontinued 05/24/2016, 05/23/2016 Hepatitis B Immunization Aged Out No longer eligible based on patient's age to complete this topic Human Papillomavirus (HPV) Immunization Aged Out No longer eligible based on patient's age to complete this topic Meningococcal Immunization (ACWY) Aged Out No longer eligible based on patient's age to complete this topic Rotavirus Immunization Aged Out No lo nger eligible based on patient's age to complete this topic Insurance [employer] MEDICARE SUP MEDICARE RAILROAD Care Teams Print Line Tailer Relationship Specialty Start Date End Date Kalen Saavedra DO [address] [place] [address] [place] [address] PCP - General Internal Medicine 01/17/16 Audie Pizarro DO [address] [place] [address] [place] [address] Gastroenterology 01/17/16
--- OUTSIDE RECORDS SUMMARY | 2025-03-16 08:14 | XMS_ITS | Clinical Summary ---
Author Organization [facility] [employer] Address [address] [place] [address] Care Team Providers Care Tailing Machine Operator Name Role Phone Jessica Russo MD Primary Care Provider + Source Comments [facility] [employer],non-owned Affiliates and Associated Physician Practices is amultiple site organization consisting of ambulatory clinics and hospital sitesin [place], [place], [place] and [place]. This disclosure is being madepursuant to the Care Everywhere program and may not contain all information available regarding this patient. Last updated 18.[facility] [employer] Allergies Active Allergy Reactions Criticality Noted Date Comments Codeine Headache 05/18/2020 Medications * Be aware that medications may not be up to date on this document. Alwaysverify current medications with the patient. Metoprolol-hydr oCHLOROthiazide (METOPROLOL-HCT Z ER PO) Active omeprazole (PRILOSEC) 10 MG capsule Take 10 mg by mouth daily before breakfast Active rosuvastatin (CRESTOR) 10 MG tablet Take 10 mg by mouth once daily Active Social History Tobacco Use Types Packs/Day Years Used Date Smoking Tobacco: Never Smokeless Tobacco: Never Alcohol Use Standard Drinks/Week Comments Never 0 (1 standard drink = 0.6 oz pur e alcohol) AUDIT-C Answer Date Recorded Q1: How often do you have a drink containing alc ohol? Never 05/18/2020 Average Number of Drinks Not on file 020 Frequency of Binge Drinking Not on file 10/2019 Comments No Sex and Gender Information Value Date Recorded Sex Assigned at Not on file Legal Sex Female 8:41 AM CDT Gender Identity Not on file Sexual Orientation Not on file Last Filed Vital Signs Vital Sign Reading Time Taken Comments Blood Pressure 126/82 05/18/2020 9:53 AM CDT Pulse 74 05/18/2020 9:53 AM CDT Temperature 36.9 C (98.4 F) 05/18/2020 9:53 AM CDT Respiratory Rate 16 05/18/2020 9:53 AM CDT Oxygen Saturation 96% 05/18/2020 9:53 AM CDT Inhaled Oxygen Concentration - - Weight 103 kg (227 lb) 05/18/2020 9:53 AM CDT Height 175.3 cm (5' 9) 05/18/2020 9:53 AM CDT Body Mass Index 33.52 05/18/2020 9:53 AM CDT Plan of Treatment Health Maintenance Due Date Last Done Comments BONE DENSITY TESTING 1945 DTAP/TDAP/TD VACCINES (1 - Tdap) 1964 PNEUMOCOCCAL VACCINE 50+ (1 of 1 - PCV) 1995 ZOSTER VACCINE (1 of 2) 1995 Respiratory Syncytial Virus (RSV) Vaccine Pt: or over 60 yrs (1 - 1-dose 75+ series) 2020 COVID-19 VACCINE ( - 2023-2 5 season) 2024 DEPRESSION SCREENING 09/16/2024 INFLUENZA VACCINE (#1) 2025 05/24/2016 HEPATITIS B VACCINE Aged Out No longe r eligible based on patient's age to complete this topic HIB VACCINE Aged Out No longer eligi ble based on patient's age to complete this topic HPV VACCINE Aged Out No longer eligi ble based on patient's age to complete this topic MENINGOCOCCAL (Group B) VACC INE SHARED DECISION-MAKING Aged Out No longer eligibl e based on patient's age to complete this topic MENINGOCOCCAL GROUPS A/C/Y/W VACCINE Aged Out No longer eligible b ased on patient's age to complete this topic Insurance [employer] Care Teams Tailing Machine Operator Relationship Specialty Start Date End Date Jessica Russo MD [address] [place] [address] PCP - General 11/20/22
--- OUTSIDE RECORDS SUMMARY | 2025-03-16 08:14 | XMS_ITS | Referral Summary ---
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
--- OUTSIDE RECORDS SUMMARY | 2025-03-16 08:14 | XMS_ITS | Data Portability ---
Author Organization [place] - [facility], Main Office Address [address] [place] [address] Care Team Providers Care Passenger Representative Name Role Phone SABRINA MCGREGOR Primary Care Provider SABRINA MCGREGOR Referring Provider Assessment Encounter Date Assessment Date Assessment LastModified by Organization Details LastModified Time 08/23/2023 08/23/2023 HPI: Patient returns, she is here wanting a cortisone injection right knee. Last shot was in August of last year. She states last 2 or 3 months the knee has been bothering her more. Most the pain is over the lateral aspect of the knee. She takes occasional shfv-str-sohqkez ibuprofen. She wished to have another injection today. Physical exam: 77-year-old female she is 5 ft 9 and 214 lb her BMI is 31.6. She has a emoj-vf-wvstbewv effusion in the right knee. Range motion is from 0-135 degrees. Moderate tenderness over the lateral joint line mild tenderness over the medial joint line. She has no increased swelling in either lower extremity. She is walking relatively well today without limp. ChloraPrep was used on skin 20 mg Kenalog and 3 cc of 0.5% ropivacaine was injected into the right knee. Risk of infection discussed. Impression: Patient has moderate lateral compartment osteoarthritis the right knee which is little bit worse than previous x-rays. Shots have worked well for her in the past. I remind her she can repeat cortisone injection as often as every 3 months. She will continue using dlhf-lps-euoyuza ibuprofen on as-needed basis. We will see her back as needed. 20 minutes was spent treatment patient more than half of this in [id number] conversation kate Not available 08/23/2023 11:00:38 Plan of Treatment Reminders Order Date Submit Date Provider Last Modified By Organization Details Last Modified Time Details Appointments None recorded. Lab None recorded. Referral None recorded. Procedures injection/a spiration joint/bursa (PROC) - in office procedure, administere d by provider 2022 023 In-Office Order, Internal Use Only DO Not Attach Compendium DO Not Attach Compendium, Do Not Delete/merge, [id number] 10:36:29 Surgeries None recorded. Imaging XR, knee 2022 023 [email or web address] [facility] [place], [address], [place], [address], 3 15:15:32 Medication Orders Kenalog 10 mg/mL suspension for injection [address]/[id number], [address] [place], [address], 3 15:15:32 ropivacaine (PF) 5 mg/mL (0.5 %) injection solution [address]/[facility] [id number], [address] [place], [address], 3 15:15:32 Patient TargetsNo targets recorded. Patient InstructionsNo instructions recorded. Reason for Referral None Reported. Results Created Date Observation Date Name Description Value Unit Range Abnormal Flag Note LastModifiedBy Organization Detail LastModifiedTime 05/04/20 22 XR, knee No observ ation record ed. [id number] [facility] [place] [address], [place], [address], 11/14/2022 02:59:31 08/23/20 23 XR, knee No observ ation record ed. [email or web address] [facility] [place] [address], [place], [address], 08/23/2023 10:58:02 Result Notes None recorded. Problems Name Problem SNOMED Code Status Onset Date Resolution Date Notes Provider Name and Address Organization Details Recorded Time Radiothera py follow-up 627777748 Active Not Available [facility] 3 02:48:21 Localized, primary osteoarthr itis 383903738 Active Not Available [facility] 3 02:48:21 Partial thickness rotator cuff tear 877559508 Active Not Available [facility] 3 02:48:21 Osteoarthr itis of knee 386304102 Active Not Available [facility] 3 02:48:21 Current tear of medial cartilage AND/OR meniscus of knee Active Not Available [facility] 3 02:48:22 Current tear of lateral cartilage AND/OR meniscus of knee Active Not Available [facility] 3 02:48:22 Knee pain Active Not Available [facility] 3 02:48:22 Osteoarthr itis of right knee joint 8931570830972 00 Active 2021 Not Available [facility] 3 02:48:22 Osteoarthr itis 067546904 Active Not Available [facility] 3 02:48:22 Disorder of bursa of shoulder region 12006631 Active Not Available [facility] 3 02:48:22 Problem Notes None recorded. Medical Equipment None Reported. Allergies Allergen ID Allergen Name Allergen Category Reaction Reaction Severity Criticality Documentation Date Start Date Code Code System Note Provider Name and Address Organization Details Recorded Time 4515 codeine medicatio n Not available Not available Not available 11/14/2022 2670 RxNorm Not Available [facility] 3 02:58:51 Medications Name Sig Start Date Stop Date Status Note LastModified by Organization Details LastModified Time celecoxib 200 mg capsule 02/23 completed Not Available Not Available Not Available amoxicillin 500 mg capsule TAKE 4 TABLETS ONE HOUR BEFORE PROCEDURE , THEN THE NEXT DAY 1 TABLET BY MOUTH 3 TIMES DAILY active Not Available Not Available No t Available prednisone 10 mg tablet 03/08 completed Not Available Not Available Not Available trazodone 50 mg tablet TK 1 TO 2 TS PO QD HS 06/10 /2020 completed Not Available Not Available Not Available azithromyci n 250 mg tablet 02/23 completed Not Available Not Available Not Available ibuprofen 800 mg tablet TAKE 1 TABLET BY MOUTH EVERY 4 6 HOURS NEEDED FOR PAIN 08/23 completed Not Available Not Available Not Available benzonatate 200 mg capsule TK ONE C PO TID PRF COUGH 02/23 completed Not Available Not Available Not Available hydrocodone 5 mg-acetamin ophen 325 mg tablet active Not Available Not Available No t Available bupivacaine HCl 0.5 % (5 mg/mL) injection solution In office injection administe red by the provider 05/04 completed Not Available Not Available Not Available Synthroid 100 mcg tablet 02/23 completed Not Available Not Available Not Available clindamycin HCl 150 mg capsule 02/23 completed Not Available Not Available Not Available topiramate 25 mg tablet TAKE 1 TABLET BY MOUTH EVERY DAY active Not Available Not Available No t Available potassium chloride ER 10 mEq tablet,exte nded release TAKE 1 TABLET BY MOUTH EVERY DAY active Not Available Not Available No t Available acetaminoph en 300 mg-codeine 30 mg tablet 02/23 completed Not Available Not Available Not Available chlorthalid one 25 mg tablet TAKE 1/2 TABLET BY MOUTH EVERY DAY active Not Available Not Available No t Available ciprofloxac in 500 mg tablet 02/23 completed Not Available Not Available Not Available omeprazole 40 mg capsule,del ayed release TAKE 1 CAPSULE BY MOUTH EVERY DAY active Not Available Not Available No t Available tramadol 50 mg tablet 02/23 completed Not Available Not Available Not Available simvastatin 40 mg tablet 03/08 completed Not Available Not Available Not Available oxycodone-a cetaminophe n 5 mg-325 mg tablet 02/23 completed Not Available Not Available Not Available dicyclomine 20 mg tablet 02/23 completed Not Available Not Available Not Available Kenalog 10 mg/mL suspension for injection in office 2022 active NDC: 0003- 0494- 20 Not Available Not Available Not Available hydrocodone 7.5 mg-acetamin ophen 325 mg tablet 03/08 completed Not Available Not Available Not Available cephalexin 500 mg capsule 02/23 completed Not Available Not Available Not Available ferrous sulfate 325 mg (65 mg iron) tablet TK 1 T PO BID 02/23 completed Not Available Not Available Not Available mupirocin 2 % topical ointment APPLY TO AFFECTED AREA TWICE A DAY active Not Available Not Available No t Available metoprolol succinate ER 25 mg tablet,exte nded release 24 hr TAKE 1 TABLET BY MOUTH EVERY DAY active Not Available Not Available No t Available azelastine 137 mcg (0.1 %) nasal spray SPRAY 1 SPRAY INTO EACH NOSTRIL EVERY 12 HOURS active Not Available Not Available No t Available methylpredn isolone 4 mg tablets in a dose pack 02/23 completed Not Available Not Available Not Available losartan 50 mg-hydrochl orothiazide 12.5 mg tablet TK 1 T PO QD 02/23 completed Not Available Not Available Not Available clobetasol 0.05 % scalp solution APPLY TOPICALLY DAILY active Not Available Not Available No t Available fluticasone propionate 50 mcg/actuati on nasal spray,suspe nsion 2 SPRAYS IN EACH NOSTRIL TWICE DAILY active Not Available Not Available No t Available ipratropium bromide 21 mcg (0.03 %) nasal spray USE 2 SPRAYS INTO EACH NOSTRIL TWICE A DAY active Not Available Not Available No t Available amoxicillin 875 mg-potassiu m clavulanate 125 mg tablet 02/23 completed Not Available Not Available Not Available nabumetone 500 mg tablet 02/23 completed Not Available Not Available Not Available Ventolin HFA 90 mcg/actuati on aerosol inhaler 02/23 completed Not Available Not Available Not Available Pneumovax-2 3 25 mcg/0.5 mL injection syringe TO BE ADMINISTE RED BY PHARMACIS T FOR IMMUNIZAT ION 02/23 completed Not Available Not Available Not Available ezetimibe 10 mg tablet TAKE 1 TABLET BY MOUTH EVERY DAY active Not Available Not Available No t Available rosuvastati n 10 mg tablet TAKE 1 TABLET BY MOUTH ONCE DAILY 08/23 completed Not Available Not Available Not Available rosuvastati n 20 mg tablet active Not Available Not Available Not Available bupropion HCl XL 300 mg 24 hr tablet, extended release 02/23 completed Not Available Not Available Not Available bupropion HCl XL 150 mg 24 hr tablet, extended release 02/23 completed Not Available Not Available Not Available memantine 10 mg tablet TAKE 1 TABLET BY MOUTH TWICE A DAY active Not Available Not Available No t Available memantine 5 mg tablet TAKE 1 TABLET BY MOUTH TWICE A DAY active Not Available Not Available No t Available eszopiclone 1 mg tablet 02/23 completed Not Available Not Available Not Available chlorhexidi ne gluconate 0.12 % mouthwash active Not Available Not Available No t Available lidocaine (PF) 10 mg/mL (1 %) injection solution In office injection administe red by the provider 05/04 completed [facility] [place]: [phone] Not Available Not Available Not Available lidocaine (PF) 5 mg/mL (0.5 %) injection solution In office injection administe red by the provider 05/04 completed Not Available Not Available Not Available M-M-R II (PF) 1,000-12,50 0 TCID50/0.5 mL subcutaneou s solution 02/23 completed Not Available Not Available Not Available diclofenac 1 % topical gel 02/23 completed Not Available Not Available Not Available Prevnar 13 (PF) 0.5 mL intramuscul ar syringe TO BE GIVEN BY THE PHARMACIS T 02/23 completed Not Available Not Available Not Available ropivacaine (PF) 5 mg/mL (0.5 %) injection solution in office 2022 active Not Available Not Available Not Avai lable memantine 7 mg capsule sprinkle,ex tended release 24hr TAKE 1 CAPSULE BY MOUTH EVERY DAY 03/08 completed Not Available Not Available Not Available Fluzone High-Dose 0373-1839 (PF) 180 mcg/0.5 mL intramuscul ar syringe TO BE GIVEN BY THE PHARMACIS T 02/23 completed Not Available Not Available Not Available Namzaric 03/29/21 mg-10 mg capsule,spr inkle,exten d release,dos e pack USE DIRECTED PER PACKAGE 03/08 completed Not Available Not Available Not Available Shingrix (PF) 50 mcg/0.5 mL intramuscul ar suspension, kit 03/08 completed Not Available Not Available Not Available Fluzone High-Dose (PF) 180 mcg/0.5 mL intramuscul ar syringe active Not Available Not Available N ot Available Fluzone High-Dose Quad (PF) 240 mcg/0.7 mL IM syringe TO BE ADMINISTE RED BY PHARMACIS T FOR IMMUNIZAT ION active Not Available Not Available No t Available Vitals Date Recorded Body height Provider Name an d Address Organization Details Last Updated DateTime 10/25/2021 175.26 cm Not Available [facility] 3 02:44:15 Date Recorded Body height Provider Name an d Address Organization Details Last Updated DateTime 01/24/2022 175.26 cm Not Available [facility] 3 02:44:16 Date Recorded Body mass index (BMI) Body height Body weight Provider Name and Address Organization Details Last Updated DateTime 05/04/2022 33.2 kg/m2 175.26 cm 013417.28 g Not Available [facility] 11/14/2022 02:44:16 Date Recorded Body height Body mass index (BMI) Body weight Provider Name and Address Organization Details Last Updated DateTime 08/23/2023 175.26 cm 31.6 kg/m2 94494.77 g MICHAEL Tucker [place] [facility] [employer] [facility] 08/23/2023 10:32:28 Date Recorded Body height Provider Name an d Address Organization Details Last Updated DateTime 08/31/2022 175.26 cm Not Available [facility] 3 02:44:16 Social History None recorded. Functional Status Question Answer Note LastModified by Organizat ion Details LastModified Time What is your level of alcohol consumption? Occasional [id number] Information not available 11/14/2022 Mental Status None recorded. Family History Nothing Reported. Medical History Condition Response BLINDNESS N KIDNEY STONES N MRSA N CARPAL TUNNEL SYNDROME N LUNG DISEASE/DISORDER N HISTORY OF DRUG ABUSE N RADIATION / CHEMOTHERAPY N COPD N SPORTS INJURY N ANKLE PAIN N BLOOD DISEASES N SCHIZOPHRENIA N BOWEL PROBLEMS N SHOULDER PAIN N DEPRESSION (INCLUDING POST ) N STROKE/TIA N KNEE PAIN N ULCERS N BENIGN PROSTATIC HYPERPLASIA N OBESITY N GERD/NAUSEA N ANEURYSM N URINARY/BLADDER/KIDNEY PROBLEMS N CORONARY ARTERY DISEASE (CAD) N ADDICTION CONCERNS N USE OF BLOOD THINNERS N SKIN PROBLEMS N EMPHYSEMA N MUSCLE,JOINT OR BONE PROBLEMS N DVT N STOMACH ULCERS N BLOOD CLOTS N USE OF NSAIDS Y CONCUSSION OR SPINAL TRAUMA N NEUROPATHY N AIDS/HIV N FRACTURES N ELBOW PAIN N HYPERTENSION Y TOURETTE'S N ANXIETY DISORDER N Metal allergy N BLOOD TRANSFUSION N ANEMIA/BLOOD DISORDER N BIPOLAR DISORDER N BRONCHITIS N OSTEOARTHRITIS N TUBERCULOSIS N FOOT PROBLEM N HEART VALVE DISORDERS N ALLERGIES/HAYFEVER N SOFT TISSUE INJURY N INFECTIOUS DISEASE N HEART ARRHYTHMIA N INSOMNIA N RHEUMATOID ARTHRITIS N HIGH CHOLESTEROL / HYPERLIPIDEMIA N EDEMA N CHRONIC PAIN SYNDROME N CAROTID BLOCKAGE N BACK / NECK PROBLEMS N HAVE YOU BEEN HOSPITALIZED OR SEEN IN [facility] ER IN THE PAST YEAR ? N BURSITIS N HERNIATED DISC N DIALYSIS N FIBROMYALGIA N OSTEOPOROSIS N ARTHRITIS Y NO SIGNIFICANT PAST MEDICAL HISTORY N PERIPHERAL NEUROPATHY N DIABETES, TYPE N HEARTBURN / REFLUX N HEPATITIS / LIVER DISEASE N GOUT N SLEEP DISORDER N ALZHEIMER'S DISEASE N HERPES N HEADACHES/MIGRAINES N SEIZURES/EPILEPSY N VASCULAR DISEASE N HIP PAIN N Blood Disorder N DIZZINESS N HEAD TRAUMA OR INJURY N HEART DISEASE/HEART PROBLEMS N MULTIPLE SCLEROSIS N CANCER: SPECIFY N CARDIAC ARRHYTHMIA N ANESTHESIA COMPLICATIONS N ATRIAL FIBRILLATION N AUTOIMMUNE DISEASE N Gynecological HistoryNo gynecological history recorded. Obstetrics History GPAL:G 0 P 0 0 0 0 Past Encounters Encounter ID Performer Location Encounter Start Date Encounter Closed Date Diagnosis/Indication Diagnosis SNOMED-CT Code Diagnosis ICD10 Code Diagnosis Note [id number] Jose Bain MD [facility] [place] [address] [place], [place] [address] 12/02/2020 00:00:00 12/02/2020 16:08:44 [id number] Jose Bain MD [facility] [place] [address] [place], [place] [address] 03/08/2021 00:00:00 03/08/2021 14:21:11 [id number] Jose Bain MD [facility] [place] [address] [place], [place] [address] 04/17/2021 00:00:00 04/17/2021 14:24:21 [id number] Jose Bain MD [facility] [place] [address] [place], [place] [address] 07/26/2021 00:00:00 07/26/2021 13:58:45 [id number] Jose Bain MD [facility] [place] [address] [place], [place] [address] 10/25/2021 00:00:00 10/25/2021 14:40:19 [id number] Jose Bain MD [facility] [place] [address] [place] [address] 01/24/2022 00:00:00 05/04/2022 12:20:05 [id number] Jose Bain MD [facility] [place] [address] [place] [address] 05/04/2022 00:00:00 05/04/2022 12:22:08 [id number] Jose Bain MD [facility] [place] [address] [place] [address] 08/31/2022 00:00:00 08/31/2022 09:03:19 [id number] Jose Bain MD [facility] [place] [address] [place] [address] 08/23/2023 09:39:57 08/23/2023 11:29:02 Osteoarthritis of right knee joint 7805419199 09861 M17.11 Health Concerns Section Related Observation LastModified by Organization Detai ls LastModified Time None Recorded Concern Status LastModified by Organization Details LastModified Time None Recorded Advance Directives Directive None Recorded Payers Insurance Date Sequence Insurance Name Policy Number Policy Kulkarni Covered Member ID Kulkarni Member ID Guarantor Name 08/29/2023 1 [employer] (MEDICARE REPLACEMENT/A DVANTAGE - PPO) Windy Escamilla [id number] Windy Escamilla OBGyn Episode No OBEpisode recorded.
[2025-03-16 08:28] LABS: Hematocrit 39.9 % (37.0-47.0); Hemoglobin 12.7 g/dL (12.0-15.0); Immature Granulocyte Percent A 0.2 % (0-0.5); Lymphocytes Absolute Auto 1.46 K/mm3 (0.9-3.2); Mean Corpuscular HGB Conc 31.8 g/dl (32-36); Mean Corpuscular Hemoglobin 27.7 pg (26-34); Mean Corpuscular Volume 86.9 fl (80-100); Nucleated Red Blood Cells Absolute Auto 0.000 K/mm3 (0.0-0.012); Nucleated Red Blood Cells Perc 0.0 % (0.0-0.2); Platelet Count Result 239 k/mm3 (150-375); Red Blood Count 4.59 M/mm3 (4.2-5.4); White Blood Count 4.9 K/mm3 (4.5-10.0)
[2025-03-16 08:40] LABS: Alanine Aminotransferase 8 U/L (6-35); Albumin Level 4.2 g/dL (3.5-5.1); Alkaline Phosphatase 56 U/L (38-126); Anion Gap 10 mmol/L (4-12); Aspartate Amino Transferase 20 U/L (14-36); Bilirubin,Total 0.4 mg/dL (0.2-1.3); Blood Urea Nitrogen 12 mg/dL (7-17); Calcium 9.3 mg/dL (8.4-10.2); Carbon Dioxide 25 mmol/L (22-30); Chloride 105 mmol/L (98-107); Cholesterol 175 mg/dL (0-200); Estimated Glomerular Filt Rate 48; Glucose 101 mg/dL (65-110); HDL Direct 45 mg/dL; Potassium 4.0 mmol/L (3.4-5.0); Sodium 140 mmol/L (137-145); Total Protein 7.2 g/dL (6.3-8.2); Triglycerides 211 mg/dL (<150)
[2025-03-16 09:09] LABS: Thyroid Stimulating Hormone 2.580 uIU/mL (0.465-4.680)
== END 2025-03-16 08:12 | disposition home or self-care (01) ==
PROVIDERS: PCP Family Medicine; Visit Provider Family Medicine
DX: I10 Essential (primary) hypertension (principal); E78.2 Mixed hyperlipidemia; R41.0 Disorientation, unspecified
CPT/HCPCS: 36415; 80053; 80061; 84443; 85025